=== PATIENT | male | born 1975 | race Caucasian/White ===

== ENCOUNTER 2017-09-29 23:35 | Emergency (ER) | payer BC ==
[2017-09-29 23:45] VITALS: BP 130/69
--- NOTE | 2017-09-30 00:15 | EDM.PDOC ---
ED HPI GENERAL MEDICAL PROBLEM - General Chief Complaint: General Stated Complaint: Left hand injury Time Seen by Provider: 09/29/17 23:50 Source of Information: Reports: Patient History Limitations: Reports: No Limitations - History of Present Illness INITIAL COMMENTS - FREE TEXT/NARRATIVE: Patient is a 42-year-old gentleman who was working in the shop when he cut himself with a piece of metal at that time he felt that he couldn't extend his finger so therefore he came into the ER for evaluation Onset: Sudden Duration: Hour(s):, Constant Location: Reports: Upper Extremity, Left Quality: Reports: Ache, Throbbing Severity: Mild Improves with: Reports: None Worsens with: Reports: None Context: Reports: Trauma Associated Symptoms: Reports: No Other Symptoms Treatments [employer]: Reports: Dressing(s) Left Hand Pain Score (Numeric/FACES): 4 - Related Data Allergies Allergy/AdvReac Type Severity Reaction Status Date / Time penicillin Allergy Cannot Verified 09/29/17 23:42 Remember Home Meds: Home Meds Dextroamphetamine/Amphetamine [Adderall 20 mg Tablet] 20 mg PO DAILY PRN [History] Past Medical History Musculoskeletal History: Reports: Other (See Below) Other Musculoskeletal History: left elbow fx, right wrist fx Psychiatric History: Reports: ADD - Infectious Disease History Infectious Disease History: Reports: Chicken Pox, Influenza - Past Surgical History Musculoskeletal Surgical History: Reports: Carpal Tunnel ED ROS GENERAL - Review of Systems Review Of Systems: See Below Constitutional: Reports: No Symptoms HEENT: Reports: No Symptoms Respiratory: Reports: No Symptoms Cardiovascular: Reports: No Symptoms Endocrine: Reports: No Symptoms GI/Abdominal: Reports: No Symptoms : Reports: No Symptoms Musculoskeletal: Reports: No Symptoms, Other (Semicircular laceration over the MP joint of the third finger in the left hand with laceration and extension tendon of the same finger) Skin: Reports: Wound, Other Neurological: Reports: No Symptoms Psychiatric: Reports: No Symptoms Hematologic/Lymphatic: Reports: No Symptoms Immunologic: Reports: No Symptoms ED EXAM, GENERAL - Physical Exam Exam: See Below Exam Limited By: No Limitations General Appearance: Alert, WD/WN, No Apparent Distress Ears: Normal External Exam, Normal Canal, Hearing Grossly Normal, Normal TMs Ear Exam: Bilateral Ear: Auricle Normal, Canal Normal, TM normal Nose: Normal Inspection, Normal Mucosa, No Blood Throat/Mouth: Normal Inspection, Normal Lips, Normal Teeth, Normal Gums, Normal Oropharynx, Normal Voice, No Airway Compromise Head: Atraumatic, Normocephalic Neck: Normal Inspection, Supple, Non-Tender, Full Range of Motion Respiratory/Chest: No Respiratory Distress, Lungs Clear, Normal Breath Sounds, No Accessory Muscle Use, Chest Non-Tender Cardiovascular: Normal Peripheral Pulses, Regular Rate, Rhythm, No Edema, No Gallop, No JVD, No Murmur, No Rub GI/Abdominal: Normal Bowel Sounds, Soft, Non-Tender, No Organomegaly, No Distention, No Abnormal Bruit, No Mass (Male) Exam: No Hernia, Normal Prostate, Deferred Rectal (Males) Exam: Deferred Back Exam: Normal Inspection, Full Range of Motion, NT Extremities: Normal Inspection, Normal Range of Motion, Non-Tender, Normal Capillary Refill, No Pedal Edema Neurological: Alert, Oriented, CN II-XII Intact, Normal Cognition Psychiatric: Normal Affect, Normal Mood ED GENERAL MEDICAL PROCEDURES - Laceration/Wound Repair Left Dorsal Finger Lac/wound length in cm: 1.5 Appearance: Linear, Clean Distal NVT: Neuro & Vascular Intact, Other (Extensor tendon injury) Anesthetic Type: Local Local Anesthesia - Lidocaine (Xylocaine): 1% Plain Skin Prep: Providone-Iodine (Betadine) Exploration/Debridement/Repair: Other Closed with: Sutures Suture Size: 4-0 # of Sutures: 3 Progress/Comments: Patient had a semicircular laceration over the MP joint and was unable to extend his tendon we went ahead and obtain x-rays and decided to close the finger using 1% lidocaine a laceration block was done then using 40 3 interrupted sutures were placed at this peak with the hand surgeon and he will see him on Saturday for repair of the extensor tendon Course - Vital Signs Last Recorded V/S: Last Vital Signs Temp 98.2 F 09/29/17 23:44 Pulse 84 09/29/17 23:44 Resp 18 09/29/17 23:44 BP 130/69 09/29/17 23:44 Pulse Ox 100 09/29/17 23:44 Departure - Departure Time of Disposition: 01:10 Disposition: Home, Self-Care 01 Condition: Good Clinical Impression: Laceration of extensor muscle, fascia and tendon of left middle finger at wrist and hand level, initial encounter - Discharge Information Instructions: Sutured Wound Care Referrals: Ernestina Rodriguez NP [Primary Care Provider] - Care Plan Goals: Patient will see Dr. Smith in [place] he is to call to make an appointment for Saturday ,call hand surgery at .
[2017-09-30] MEDS ORDERED: Diphtheria,Pertussis(Acell),Tetanus Vaccine 0.5 ML SDV IM ONE (00:25)
[2017-09-30] MEDS ORDERED: Bacitracin/Neomycin/Polymyxin B Oint 0.9 GM U/D Packet TOP ONE (00:44)
== END 2017-09-30 01:25 | disposition home or self-care (01) ==
LOC: LL.ED 23:35
DX: S66.323A Laceration of extensor muscle, fascia and tendon of left middle finger at wrist and hand level, initial encounter (principal); Z88.0 Allergy status to penicillin; Z23 Encounter for immunization; W26.8XXA Contact with other sharp object(s), not elsewhere classified, initial encounter; Y99.0 Civilian activity done for income or pay; Y92.513 Shop (commercial) as the place of occurrence of the external cause
CPT/HCPCS: 12001; 73130-LT; 90471; 90715; 99283

== ENCOUNTER 2019-05-21 20:35 | Emergency (ER) | payer BC, OTHER ==
[2019-05-21] MEDS ORDERED: cloNIDine 0.1 MG Tab PO ONE (20:48)
[2019-05-21 21:17] LABS: CHLORIDE,CL 103 mmol/L (98-107); SODIUM,NA 141 mmol/L (136-145)
--- NOTE | 2019-05-21 21:28 | EDM.PDOC ---
ED HPI GENERAL MEDICAL PROBLEM - General Chief Complaint: Cardiovascular Problem Stated Complaint: HTN, racing heart Time Seen by Provider: 05/21/19 20:40 Source of Information: Reports: Patient History Limitations: Reports: No Limitations - History of Present Illness INITIAL COMMENTS - FREE TEXT/NARRATIVE: Pt just feels bad Has had increasing BP over several months No chest pain No SOB No hx/o DM Onset: Gradual Duration: Week(s): Location: Reports: Generalized - Related Data Allergies Allergy/AdvReac Type Severity Reaction Status Date / Time penicillin Allergy Cannot Verified 05/21/19 20:59 Remember Home Meds: Home Meds Dextroamphetamine/Amphetamine [Adderall 20 mg Tablet] 20 mg PO DAILY PRN [History] Ascorbate Calcium [Vitamin C] 500 mg PO DAILY 05/21/19 [History] Fenofibrate Nanocrystallized [Fenofibrate] 1 cap PO BEDTIME 05/21/19 [History] Fish Oil/[place]-3 Fatty Acids [Fish Oil 1,000 MG] 1 each PO DAILY 05/21/19 [ History] Sildenafil [Viagra] 100 mg PO BEDTIME PRN 05/21/19 [History] Past Medical History Cardiovascular History: Reports: High Cholesterol Respiratory History: Reports: None Genitourinary History: Reports: Other (See Below) Other Genitourinary History: ED Musculoskeletal History: Reports: Other (See Below) Other Musculoskeletal History: left elbow fx, right wrist fx Neurological History: Reports: None Psychiatric History: Reports: ADD Endocrine/Metabolic History: Reports: Obesity/BMI 30+ Oncologic (Cancer) History: Reports: None - Infectious Disease History Infectious Disease History: Reports: Chicken Pox, Influenza - Past Surgical History HEENT Surgical History: Reports: Adenoidectomy, Oral Surgery, Tonsillectomy Respiratory Surgical History: Reports: None GI Surgical History: Reports: Other (See Below) Other GI Surgeries/Procedures: umbilical hernia Musculoskeletal Surgical History: Reports: Carpal Tunnel Social & Family History - Tobacco Use Smoking Status *Q: Current Every Day Smoker Years of Tobacco use: 20 Packs/Tins Daily: 0.3 ED ROS GENERAL - Review of Systems Review Of Systems: See Below Constitutional: Reports: Malaise Respiratory: Reports: No Symptoms Cardiovascular: Reports: No Symptoms GI/Abdominal: Reports: No Symptoms Musculoskeletal: Reports: No Symptoms Neurological: Reports: No Symptoms ED EXAM, GENERAL - Physical Exam Exam: See Below Exam Limited By: No Limitations General Appearance: No Apparent Distress Throat/Mouth: Normal Oropharynx Neck: Supple Respiratory/Chest: Lungs Clear Cardiovascular: Regular Rate, Rhythm GI/Abdominal: Non-Tender Extremities: No Pedal Edema Course - Vital Signs Last Recorded V/S: Last Vital Signs Temp 36.8 C 05/21/19 20:35 Pulse 95 05/21/19 21:20 Resp 15 05/21/19 21:20 BP 145/90 H 05/21/19 21:20 Pulse Ox 99 05/21/19 21:20 - Orders/Labs/Meds Orders: Active Orders 24 hr Category Date Time Status EKG Documentation Completion [RC] ASDIRECTED Care 05/21/19 20:48 Active EKG 12 Lead [EK] Routine Ther 05/21/19 20:48 Ordered Labs: Laboratory Tests 05/21/19 05/21/19 Range/Units 20:59 20:59 WBC 7.6 (4.0-10.2) K/uL RBC 5.31 (4.33-5.41) M/uL Hgb 16.5 (13.1-16.8) g/dL Hct 46.6 (39.0-49.0) % MCV 87.8 (84.0-98.0) fL MCH 31.1 (28.2-33.3) pg MCHC 35.4 (31.7-36.0) g/dL RDW 12.4 (11.2-14.1) % Plt Count 168 (150-350) K/uL Neut % (Auto) 58.5 (45.0-80.0) % Lymph % (Auto) 31.2 (10.0-50.0) % Graham % (Auto) 8.7 (2.0-14.0) % Eos % (Auto) 1.2 (0.0-5.0) % Baso % (Auto) 0.4 (0.0-2.0) % Neut # (Auto) 4.47 (1.40-7.00) K/uL Lymph # (Auto) 2.38 (0.50-3.50) K/uL Graham # (Auto) 0.66 (0.00-1.00) K/uL Eos # (Auto) 0.09 (0.00-0.50) K/uL Baso # (Auto) 0.03 (0.00-0.20) K/uL Sodium 141 (136-145) mmol/L Potassium 4.1 (3.5-5.1) mmol/L Chloride 103 (98-107) mmol/L Carbon Dioxide 30.2 (21.0-32.0) mmol/L BUN 15 (7-18) mg/dL Creatinine 1.05 (0.51-1.17) mg/dL Est Cr Clr Drug Dosing 93.63 mL/min Estimated GFR (MDRD) > 60 mL/min Glucose 106 (74-106) mg/dL Calcium 8.9 (8.5-10.1) mg/dL Total Bilirubin 0.4 (0.2-1.0) mg/dL AST 30 (15-37) U/L ALT 75 (12-78) U/L Alkaline Phosphatase 52 (46-116) IU/L Total Protein 8.0 (6.4-8.2) g/dL Albumin 4.3 (3.4-5.0) g/dL Meds: Medications Discontinued Medications Generic Name Dose Route Start Last Admin Trade Name Freq PRN Reason Stop Dose Admin Clonidine HCl 0.1 mg 05/21/19 20:48 05/21/19 20:52 Catapres PO 05/21/19 20:49 0.1 mg ONETIME ONE Administration - Re-Assessments/Exams Free Text/Narrative Re-Assessment/Exam: 05/21/19 21:29 Pt BP improved after Clonidine Departure - Departure Time of Disposition: 21:30 Disposition: Home, Self-Care 01 Clinical Impression: HTN (hypertension) Qualifiers: Hypertension type: essential hypertension Qualified Code(s): I10 - Essential ( primary) hypertension Instructions: Form - Blood Pressure Record Sheet, Hypertension, [id number], Preventing Hypertension Referrals: Ernestina Rodriguez NP [Primary Care Provider] - Forms: ED Department Discharge Additional Instructions: Follow up in clinic in AM Sepsis Event Note - Evaluation Sepsis Screening Result: No Definite Risk - Focused Exam Vital Signs: Vital Signs Temp Pulse Resp BP BP Pulse Ox 05/21/19 21:20 95 15 145/90 H 99 05/21/19 21:05 104 H 16 149/88 H 98 05/21/19 20:52 146/87 H 05/21/19 20:50 100 18 146/87 H 99 05/21/19 20:35 36.8 C 116 H 16 182/91 H 95 Date Exam was Performed: 05/21/19 Time Exam was Performed: 21:22 - My Orders Last 24 Hours: My Active Orders 05/21/19 20:48 EKG Documentation Completion [RC] ASDIRECTED EKG 12 Lead [EK] Routine - Assessment/Plan Last 24 Hours: My Active Orders 05/21/19 20:48 EKG Documentation Completion [RC] ASDIRECTED EKG 12 Lead [EK] Routine
[2019-05-21 22:36] VITALS: BP 158/104; PULSE 98
== END 2019-05-21 21:50 | disposition home or self-care (01) ==
LOC: LL.ED 20:35
DX: I10 Essential (primary) hypertension (principal); F17.210 Nicotine dependence, cigarettes, uncomplicated; Z88.0 Allergy status to penicillin; Z79.899 Other long term (current) drug therapy
CPT/HCPCS: 36415; 80053; 85025; 93005; 99283-25; A9270-GY

== ENCOUNTER 2022-10-25 10:05 | Emergency (ER) | payer OTHER, BC ==
[2022-10-25] MEDS ORDERED: Lidocaine 1% 5 ML VIAL INJECT ONE (10:58)
[2022-10-25] MEDS ORDERED: Bacitracin/Neomycin/Polymyxin B Oint 0.9 GM U/D Packet TOP ONE (11:24)
[2022-10-25 11:46] VITALS: BP 130/87; PULSE 90
== END 2022-10-25 12:00 | disposition home or self-care (01) ==
LOC: LL.ED 10:05
DX: S61.012A Laceration without foreign body of left thumb without damage to nail, initial encounter (principal); E66.9 Obesity, unspecified; Z88.0 Allergy status to penicillin; Z68.33 Body mass index [BMI] 33.0-33.9, adult; W22.8XXA Striking against or struck by other objects, initial encounter; Y92.89 Other specified places as the place of occurrence of the external cause; Y99.0 Civilian activity done for income or pay
CPT/HCPCS: 12001; 99282; 99283; J3490